=== PATIENT | male | born 1955 | race Hispanic/Latino ===

== ENCOUNTER 2017-05-22 23:36 | Inpatient (IN) | payer OTHER ==
[2017-05-22 23:46] VITALS: BMI 27.2
[2017-05-22] MEDS ORDERED: HYDROmorphone 1 mg/ml ISec IVP STA (23:47)
[2017-05-22] MEDS ORDERED: Sodium Chloride 0.9% 1,000 ML IV STA (23:47)
--- NOTE | 2017-05-22 23:58 | ED PDOC ---
Arrival/HPI - General Time Seen by Provider: 05/22/17 23:42 Historian: Patient, Spouse, EMS - History of Present Illness Narrative History of Present Illness (Text): 05/22/17 23:46 Bharat Grigsby is a 62 year old male, with a history of hypertension, appendectomy, and cholecystectomy, presents to the emergency department complaining of 1 week duration of lower abdominal pain associated with diarrhea. Patient's states that he was evaluated by PMD, , for these symptoms and was started on Imodium. States he has been taking medication for minimal relief. States that pain worsened tonight which prompted them to present to the emergency department for evaluation. Spouse states that patient has decreased appetite and associated 12 pound weight loss. Denies any fever, chills, headache, dizziness, chest pain, nausea, or urinary symptoms, or any other complaints at this time PMD: Time/Duration: Other (1 week ) Symptom Onset: Gradual Severity Level: Mild Activities at Onset: Light Context: Home Past Medical History - Provider Review Nursing Documentation Reviewed: Yes Family/Social History - Physician Review Nursing Documentation Reviewed: Yes Family/Social History: No Known Family HX Allergies/Home Meds Allergies/Adverse Reactions: Allergies No Known Allergies Allergy (Unverified 05/22/17 23:47) Home Medications: Home Meds Medication Instructions Recorded Confirmed Metoprolol Succinate [Metoprolol 50 mg PO DAILY 05/23/17 05/23/17 Succinate] Sucralfate [Carafate] 1 gm PO BID 05/23/17 05/23/17 Triamterene/Hydrochlorothiazid 25 - 37.5 mg PO DAILY 05/23/17 05/23/17 [Triamterene-Hctz 37.5-25 mg Tb] Review of Systems - Physician Review All systems were reviewed & negative as marked: Yes - Review of Systems Constitutional: Normal. absent: Fatigue, Fevers Respiratory: Normal. absent: SOB, Cough, Sputum Cardiovascular: Normal. absent: Chest Pain, Palpitations Gastrointestinal: Abdominal Pain, Diarrhea. absent: Nausea, Vomiting Neurological: Normal. absent: Headache, Dizziness Physical Exam Vital Signs Reviewed: Yes Vital Signs Temp Pulse Resp BP Pulse Ox 05/23/17 04:53 75 18 136/85 95 05/23/17 04:00 68 16 145/82 96 05/23/17 02:22 98.9 F 05/23/17 00:45 98.3 F 76 18 150/80 99 05/22/17 23:52 64 16 150/107 H 99 Temperature: Afebrile Blood Pressure: Hypertensive Pulse: Regular Respiratory Rate: Normal Appearance: Positive for: Well-Appearing, Non-Toxic, Comfortable Pain Distress: None Mental Status: Positive for: Alert and Oriented X 3 - Systems Exam Head: Present: Atraumatic, Normocephalic Extroacular Muscles: Present: EOMI Conjunctiva: Present: Normal Mouth: Present: Moist Mucous Membranes Respiratory/Chest: Present: Clear to Auscultation, Good Air Exchange. No: Respiratory Distress, Accessory Muscle Use Cardiovascular: Present: Regular Rate and Rhythm, Normal S1, S2. No: Murmurs Abdomen: Present: Tenderness (Minimal left lower quadrant tenderness ), Normal Bowel Sounds. No: Distention, Peritoneal Signs, Rebound, Guarding Upper Extremity: Present: Normal Inspection. No: Cyanosis, Edema Lower Extremity: Present: Normal Inspection. No: Edema Neurological: Present: GCS=15, CN II-XII Intact, Speech Normal, Motor Func Grossly Intact, Normal Sensory Function Skin: Present: Warm, Dry, Normal Color. No: Rashes Psychiatric: Present: Alert, Oriented x 3, Normal Insight, Normal Concentration Medical Decision Making ED Course and Treatment: 05/22/17 23:59 Impression: A 62 year old male who presents to the emergency department complaining of abdominal pain associated with diarrhea for 1 week. Plan: -- CT abdomen pelvis -- Labs -- Dilaudid -- IV fluids -- Zofran -- Urinalysis - Reassess and disposition Progress Notes: 05/23/17 02:21 EXAM: CT Abdomen and Pelvis With Intravenous Contrast Dictated and Authenticated by: Jeanne Burrell MD FINDINGS: Abdomen pelvis: Hepatic steatosis. Post cholecystectomy. Unremarkable pancreas, spleen, and adrenal glands. Bilateral renal cysts. No hydronephrosis. Normal caliber aorta. Moderate fecal retention. No bowel obstruction. Nonvisualization of the appendix. No free fluid or free air. IMPRESSION: Constipation. 05/23/17 05:41 EKG interpreted by me: NSR @ [address]/T changes. 05/23/17 05:[address] Longoria who is aware and agrees with the plan to observe patient at telemetry for abdominal pain and hypokalemia. Accepts patient under hospitalist service. - Lab Interpretations Lab Results: 05/23/17 00:03 05/23/17 00:03 Lab Results 05/23/17 02:01: pO2 33, VBG pH 7.51 H, VBG pCO2 31.0 L, VBG HCO3 24.7, VBG Total CO2 25.7, VBG O2 Sat (Calc) 76.1 H, VBG Base Excess 2.6 H, VBG Potassium 3.0 L, Glucose 127 H, Lactate 3.6 H, FiO2 21.0, Sodium 139.0, Chloride 100.0, Venous Blood Potassium 3.0 L 05/23/17 01:50: Urine Color Yellow, Urine Appearance Clear, Urine pH 6.5, Ur Specific [place] 1.010, Urine Protein Negative, Urine Glucose (UA) Negative, Urine Ketones 40 H, Urine Blood Negative, Urine Nitrate Negative, Urine Bilirubin Negative, Urine Urobilinogen 0.2, Ur Leukocyte Esterase Negative 05/23/17 00:03: WBC 6.3, RBC 5.64, Hgb 17.5, Hct 47.6, MCV 84.4, MCH 31.0, MCHC 36.8, RDW 12.7, Plt Count 225, MPV 10.1 05/23/17 00:03: Sodium 139, Potassium 2.6 L*, Chloride 96, Carbon Dioxide 21, Anion Gap 25 H, BUN 22 H, Creatinine 1.2, Est GFR ( Amer) > 60, Est GFR ( Non-Af Amer) > 60, Random Glucose 132 H, Calcium 10.5, Total Bilirubin 1.6 H, AST 38, ALT 49, Alkaline Phosphatase 57, Total Protein 8.7 H, Albumin 5.4 H, Globulin 3.3, Albumin/Globulin Ratio 1.6, Lipase 558 H I have reviewed the lab results: Yes - RAD Interpretation Radiology Orders: 05/22/17 23:48 ABD & PELVIS IV CONTRAST ONLY [CT] Stat Partner: Radiologist - Medication Orders Current Medication Orders: Sodium Chloride (Sodium Chloride 0.9%) 1,000 mls @ 100 mls/hr IV .Q10H ROGELIO Last Admin: 05/23/17 03:06 Dose: 100 mls/hr Discontinued Medications Hydromorphone HCl (Dilaudid) 1 mg IVP STAT STA Stop: 05/22/17 23:48 Last Admin: 05/23/17 00:10 Dose: 1 mg Sodium Chloride (Sodium Chloride 0.9%) 1,000 mls @ 999 mls/hr IV .Q1H1M STA Stop: 05/23/17 00:47 Last Admin: 05/23/17 00:12 Dose: 999 mls/hr Potassium Chloride (Potassium Chloride 20 Meq/100 Ml) 20 meq in 100 mls @ 50 mls/hr IV ONCE ONE Stop: 05/23/17 02:35 Last Admin: 05/23/17 01:01 Dose: 50 mls/hr Sodium Chloride (Sodium Chloride 0.9%) 1,000 mls @ 999 mls/hr IV .Q1H1M STA Stop: 05/23/17 01:36 Last Admin: 05/23/17 01:02 Dose: 999 mls/hr Potassium Chloride (Potassium Chloride 20 Meq/100 Ml) 20 meq in 100 mls @ 50 mls/hr IV ONCE ONE Stop: 05/23/17 02:36 Last Admin: 05/23/17 03:27 Dose: 50 mls/hr Iohexol (Omnipaque 350 100 Ml) Confirm Administered Dose 350 mg .ROUTE .STK-MED ONE Stop: 05/23/17 01:15 Ondansetron HCl (Zofran Inj) 4 mg IVP ONCE ONE Stop: 05/22/17 23:48 Last Admin: 05/23/17 00:12 Dose: 4 mg - Keerthie Statement The provider has reviewed the documentation as recorded by the Tess Banegas Provider Attestation: All medical record entries made by the Tess were at my direction and personally dictated by me. I have reviewed the chart and agree that the record accurately reflects my personal performance of the history, physical exam, medical decision making, and the department course for this patient. I have also personally directed, reviewed, and agree with the discharge instructions and disposition. Disposition/Present on Arrival - Present on Arrival Any Indicators Present on Arrival: No History of DVT/PE: No History of Uncontrolled Diabetes: No Urinary Catheter: No History of Decub. Ulcer: No History Surgical Site Infection Following: None - Disposition Have Diagnosis and Disposition been Completed?: Yes Diagnosis: Intractable abdominal pain, Hypokalemia Disposition: HOSPITALIZED Disposition Time: 02:40 Patient Plan: Admission Patient Problems: Current Active Problems Problem Status Onset Hypokalemia Acute Intractable abdominal pain Acute Condition: STABLE
[2017-05-23 00:17] LABS: HEMOGLOBIN 17.5 g/dL (14.0-18.0); MEAN CELL VOLUME 84.4 fl (80.0-105.0); MEAN CORPUSCULAR HGB CONC 36.8 g/dl (31.0-37.0); MEAN PLATELET VOLUME 10.1 fl (7.0-11.0); RBC 5.64 10^6/uL (3.5-6.1); RED CELL DISTRIBUTION WIDTH 12.7 % (11.5-14.5); WHITE BLOOD COUNT 6.3 10^3/ul (4.5-11.0)
[2017-05-23 00:26] LABS: ALBUMIN 5.4 g/dL (3.0-4.8); ALT/SGPT 49 U/L (7-56); AST/SGOT 38 U/L (15-59); BLOOD UREA NITROGEN 22 mg/dL (7-21); CALCIUM 10.5 mg/dL (8.4-10.5); GFR AFRICAN-AMERICAN > 60; GFR NON-AFRICAN AMERICAN > 60; LIPASE 558 U/L (23-300)
[2017-05-23 00:30] LABS: ALB/GLOB RATIO 1.6 (1.1-1.8)
[2017-05-23] MEDS ORDERED: Sodium Chloride 0.9% 1,000 ML IV STA (00:36)
[2017-05-23] MEDS ORDERED: Iohexol 350 MG/100 ML VIAL ONE (01:14)
[2017-05-23 02:10] LABS: PH,URINE 6.5 (4.7-8.0); URINE BILIRUBIN NEGATIVE (NEGATIVE); URINE BLOOD NEGATIVE (NEGATIVE); URINE GLUCOSE (UA) NEGATIVE (NEGATIVE); URINE LEUKOCYTE ESTERASE NEGATIVE Leu/uL (NEGATIVE); URINE NITRATE NEGATIVE (NEGATIVE); URINE PROTEIN NEGATIVE mg/dL (<30 mg/dL); URINE UROBILINOGEN 0.2 E.U./dL (<1 E.U./dL)
[2017-05-23 02:12] LABS: URINE APPEARANCE CLEAR (CLEAR); URINE COLOR YELLOW (YELLOW)
[2017-05-23 02:17] LABS: VENOUS BLOOD GAS BASE EXCESS 2.6 mmol/L (0.0-2.0); VENOUS BLOOD GAS PO2 33 mm/Hg (30-55); VENOUS BLOOD PH 7.51 (7.32-7.43)
[2017-05-23] MEDS: Sodium Chloride 0.9% 1,000 ML IV SCH ×3 (03:06→23:30)
--- NOTE | 2017-05-23 06:21 | CP.PCM.HP ---
<Gary Posada - Last Filed: 05/23/17 06:23> History of Present Illness - History of Present Illness History of Present Illness: Patient is a 62 year old male with PMH sig for HTN and colon polyps who presents with 2-3 week history of abdominal pain. The patient reports for the past week he has experienced diarrhea associated with his abdominal pain. Patient describes abdominal pain as cramping and sharp located at the left lower quadrant. He rates the pain as 10/10 on admission. At time of interview patient rates pain as 4/10. The patient went to his PMD Dr. Hou with presenting complaints and given imodium. The patient reports since he started taking the imodium has been having constipation. patient reports last bowel movement was 6 hours prior to arrival and noted to be small, black, stool. He denies any pain with defecation, blood or mucus in stool, fever, chills, vomiting. He does indicate feelings of nausea associated with abdominal discomfort. PMH: HTN, colon polyps PSH: Appendectomy, Cholecystectomy, Tonsillectomy, Colonoscopy 4 years prior FMH: Father: Lung Ca, Mother: Kidney stones, Brother and Sister both with cholecystectomy SocHx: Denies tobacco, ETOH, ID/IVDA Allergies: NKDA Meds: See DEC PMD: Dr. Hou Present on Admission - Present on Admission Any Indicators Present on Admission: No History of DVT/PE: No History of Uncontrolled Diabetes: No Urinary Catheter: No Decubitus Ulcer Present: No Review of Systems - Constitutional Constitutional: As Per HPI - Cardiovascular Cardiovascular: absent: Chest Pain, Dyspnea, Leg Edema, Palpitations - Respiratory Respiratory: absent: Cough, Dyspnea, Hemoptysis - Gastrointestinal Gastrointestinal: Abdominal Pain (LLQ), Change in Bowel Habits, Constipation, Melena, Nausea. absent: Dysphagia, Hematochezia, Vomiting - Genitourinary Genitourinary: absent: Dysuria, Flank Pain, Hematuria, Urinary Incontinence - Musculoskeletal Musculoskeletal: absent: Muscle Cramps, Muscle Weakness, Numbness - Integumentary Integumentary: As Per HPI - Neurological Neurological: absent: Abnormal Gait, Abnormal Movements, Headaches, Syncope, Weakness - Psychiatric Psychiatric: absent: Anxiety, Depression - Hematologic/Lymphatic Hematologic: absent: Easy Bleeding, Easy Bruising Past Patient History - Past Social History Smoking Status: Never Smoked Alcohol: None Drugs: Denies - CARDIAC Hx Hypertension: Yes - PULMONARY Hx Respiratory Disorders: No (denies) - NEUROLOGICAL Hx Neurological Disorder: No (denies) - HEENT Hx HEENT Problems: No (denies) - RENAL Hx Chronic Kidney Disease: No (denies) - ENDOCRINE/METABOLIC Hx Endocrine Disorders: No (denies) - HEMATOLOGICAL/ONCOLOGICAL Hx Blood Disorders: No (denies) - INTEGUMENTARY Hx Dermatological Problems: No (denies) - MUSCULOSKELETAL/RHEUMATOLOGICAL Hx Musculoskeletal Disorders: No (denies) - GASTROINTESTINAL Hx Gastrointestinal Disorders: No (denies) - GENITOURINARY/GYNECOLOGICAL Hx Genitourinary Disorders: No - PSYCHIATRIC Hx Psychophysiologic Disorder: No Hx Substance Use: No - SURGICAL HISTORY Hx Surgeries: Yes Hx Appendectomy: Yes Hx Cholecystectomy: Yes Meds Home Medications: Home Medication List Medication Instructions Recorded Confirmed Type Potassium Chloride 20 meq PO DAILY #3 [email or web address] 05/23/17 Rx Allergies/Adverse Reactions: Allergies Allergy/AdvReac Type Severity Reaction Status Date / Time No Known Allergies Allergy Unverified 05/22/17 23:47 Physical Exam - Constitutional Appears: Well - Head Exam Head Exam: ATRAUMATIC, NORMAL INSPECTION, NORMOCEPHALIC - Eye Exam Eye Exam: EOMI, PERRL - ENT Exam ENT Exam: Mucous Membranes Moist, Normal Exam - Respiratory Exam Respiratory Exam: Clear to Auscultation Bilateral, NORMAL BREATHING PATTERN - Cardiovascular Exam Cardiovascular Exam: REGULAR RHYTHM, +S1, +S2 - GI/Abdominal Exam GI & Abdominal Exam: Hypoactive Bowel Sounds, Soft, Tenderness (left lower quadrant to palpation). absent: Firm - Extremities Exam Extremities exam: Positive for: full ROM, normal inspection, pedal pulses present - Back Exam Back exam: NORMAL INSPECTION. absent: CVA tenderness (L), CVA tenderness (R) - Neurological Exam Neurological exam: Alert, CN II-XII Intact, Normal Gait, Oriented x3, Reflexes Normal - Psychiatric Exam Psychiatric exam: Normal Affect, Normal Mood - Skin Skin Exam: Dry, Intact, Normal Color, Warm Results - Vital Signs Recent Vital Signs: Last Vital Signs Temp 98.9 F 05/23/17 02:22 Pulse 91 H 05/23/17 06:11 Resp 18 05/23/17 04:53 BP 136/85 05/23/17 04:53 Pulse Ox 95 05/23/17 04:53 - Labs Result Diagrams: 05/23/17 00:03 05/23/17 00:03 Assessment & Plan - Assessment and Plan (Free Text) Assessment: Patient is a 62 year old male with PMH of HTN and hx of colon polyps who presents to [facility] [place] complaining of abdominal pain for the past 2-3 weeks. Patient reports diarrhea for past week with treatment of imodium causing subsequent constipation. Patient has had CT of abdomen and pelvis showing constipation. Plan: 1. Left lower abdominal pain - Likely 2/2 constipation vs. IBS vs. diverticulitis - CT abdomen showing moderate fecal retention, no bowel obstruction, no free fluid or free air - Lipase of 558, Lactate of 3.6 on VBG, No elevation of WBC - most recent colonoscopy was four years ago showing polyps - IV Dilaudid 0.5mg Q4prn for severe pain - zofran for nausea - Liquid diet, IVF NS - GI consult - repeat lipase/amylase and lactic acid 2. Hypokalemia - K of 2.7 on admit - Patient asymptomatic, EKG showing no ST segment elevation/depression - Replace with Kdur, given 40 meq in ED - Repeat CBC - Hold home diuretic - monitor 3. Constipation - History of constipation past week secondary to imodium - CT abdomen pelvis showing fecal retention - Miralax, Colace 4. Hx of HTN - VSS - Restart Metoprolol 50mg - Hold diuretic due to hypokalemia on presentation 5. GI/DVT ppx - protonix - SCDs - Date & Time Date: 05/23/17 Time: 06:33 <Bess Espino - Last Filed: 05/23/17 20:32> Results - Vital Signs Recent Vital Signs: Last Vital Signs Temp 99.8 F H 05/23/17 17:20 Pulse 72 05/23/17 17:20 Resp 21 05/23/17 17:20 BP 138/86 05/23/17 17:20 Pulse Ox 95 05/23/17 04:53 - Labs Result Diagrams: 05/23/17 00:03 05/23/17 16:46 Labs: Laboratory Results - last 24 hr 05/23/17 05/23/17 05/23/17 06:45 07:00 08:00 pO2 83 H VBG pH 7.42 VBG pCO2 37.0 L VBG HCO3 24.0 VBG Total CO2 25.1 VBG O2 Sat (Calc) 98.8 H VBG Base Excess -0.2 L VBG Potassium 2.9 L Sodium 139.0 139 Chloride 103.0 103 Glucose 162 H Lactate 2.7 H FiO2 21.0 Potassium 2.9 L* Carbon Dioxide 22 Anion Gap 17 BUN 19 Creatinine 0.9 Est GFR ( Amer) > 60 Est GFR (Non-Af Amer) > 60 Random Glucose 153 H Lactic Acid 2.8 H Calcium 8.8 Magnesium Total Bilirubin 1.2 AST 33 ALT 42 Alkaline Phosphatase 41 Total Protein 6.7 Albumin 4.2 Globulin 2.5 Albumin/Globulin Ratio 1.7 Venous Blood Potassium 2.9 L 05/23/17 05/23/17 05/23/17 11:30 12:41 16:46 pO2 35 27 L VBG pH 7.44 H 7.42 VBG pCO2 38.0 L 41.0 VBG HCO3 25.8 26.6 VBG Total CO2 27.0 27.9 VBG O2 Sat (Calc) 76.7 H 62.8 VBG Base Excess 1.7 1.9 VBG Potassium 3.5 L 3.8 Sodium 140.0 141.0 Chloride 105.0 107.0 Glucose 131 H 104 Lactate 2.0 1.8 FiO2 21.0 21.0 Potassium Carbon Dioxide Anion Gap BUN Creatinine Est GFR ( Amer) Est GFR (Non-Af Amer) Random Glucose Lactic Acid Calcium Magnesium 1.8 Total Bilirubin AST ALT Alkaline Phosphatase Total Protein Albumin Globulin Albumin/Globulin Ratio Venous Blood Potassium 3.5 L 3.8 05/23/17 16:46 pO2 VBG pH VBG pCO2 VBG HCO3 VBG Total CO2 VBG O2 Sat (Calc) VBG Base Excess VBG Potassium Sodium 140 Chloride 106 Glucose Lactate FiO2 Potassium 3.6 Carbon Dioxide 24 Anion Gap 14 BUN 15 Creatinine 1.0 Est GFR ( Amer) > 60 Est GFR (Non-Af Amer) > 60 Random Glucose 98 Lactic Acid Calcium 8.5 Magnesium Total Bilirubin AST ALT Alkaline Phosphatase Total Protein Albumin Globulin Albumin/Globulin Ratio Venous Blood Potassium Attending/Attestation - Attestation I have personally seen and examined this patient.: Yes I have fully participated in the care of the patient.: Yes I have reviewed all pertinent clinical information: Yes Notes (Text): 05/23/17 20:30 Agree with history,physical examination, assessmend and plan.
[2017-05-23] MEDS ORDERED: Potassium Chloride 40 mEq/30 ml LIQ UD PO ONE (06:24)
[2017-05-23] MEDS: HYDROmorphone 0.5 mg/0.5 ml ISec IVP PRN (06:25)
[2017-05-23 07:05] LABS: VENOUS BLOOD GAS BASE EXCESS -0.2 mmol/L (0.0-2.0); VENOUS BLOOD GAS PO2 83 mm/Hg (30-55); VENOUS BLOOD PH 7.42 (7.32-7.43)
[2017-05-23 08:16] LABS: ALB/GLOB RATIO 1.7 (1.1-1.8); ALBUMIN 4.2 g/dL (3.0-4.8); ALT/SGPT 42 U/L (7-56); AST/SGOT 33 U/L (15-59); BLOOD UREA NITROGEN 19 mg/dL (7-21); CALCIUM 8.8 mg/dL (8.4-10.5); GFR AFRICAN-AMERICAN > 60; GFR NON-AFRICAN AMERICAN > 60
[2017-05-23] MEDS: POLYETHYLENE GLYCOL 3350 17 GM/Dose PACKET PO SCH ×2 (09:45→18:14)
[2017-05-23] MEDS: Metoprolol Succinate 50 mg XL Tab PO SCH (09:46)
[2017-05-23] MEDS ORDERED: HYDROCHLOROTHIAZIDE PO SCH (10:00)
[2017-05-23] MEDS ORDERED: TRIAMTERENE PO SCH (10:00)
--- NOTE | 2017-05-23 10:07 | CP.PCM.CON ---
<Evonne Fowler V - Last Filed: 05/23/17 22:46> Meds Home Medications: Home Medication List Medication Instructions Recorded Confirmed Type Potassium Chloride 20 meq PO DAILY #3 [email or web address] 05/23/17 Rx Allergies/Adverse Reactions: Allergies Allergy/AdvReac Type Severity Reaction Status Date / Time No Known Allergies Allergy Unverified 05/22/17 23:47 - Medications Medications: Current Medications Acetaminophen (Tylenol 325mg Tab) 650 mg PO Q6H PRN PRN Reason: Fever >100.4 F Docusate Sodium (Colace) 100 mg PO BID [facility] [place] Last Admin: 05/23/17 18:14 Dose: 100 mg Hydromorphone HCl (Dilaudid) 0.5 mg IVP Q6H PRN PRN Reason: Pain, severe (8-10) Last Admin: 05/23/17 06:25 Dose: 0.5 mg Sodium Chloride (Sodium Chloride 0.9%) 1,000 mls @ 100 mls/hr IV .Q10H [facility] [place] Last Admin: 05/23/17 12:16 Dose: 100 mls/hr Metoprolol Succinate (Toprol Xl) 50 mg PO DAILY [facility] [place] Last Admin: 05/23/17 09:46 Dose: 50 mg Pantoprazole Sodium (Protonix Inj) 40 mg IVP DAILY [facility] [place] Last Admin: 05/23/17 09:45 Dose: 40 mg Polyethylene Glycol (Miralax) 17 gm PO BID [facility] [place] Last Admin: 05/23/17 18:14 Dose: 17 gm Sucralfate (Carafate Tab) 1 gm PO BID [facility] [place] Last Admin: 05/23/17 18:14 Dose: 1 gm Results - Vital Signs Recent Vital Signs: Last Vital Signs Temp 99.8 F H 05/23/17 17:20 Pulse 72 05/23/17 17:20 Resp 21 05/23/17 17:20 BP 138/86 05/23/17 17:20 Pulse Ox 95 05/23/17 04:53 - Labs Result Diagrams: 05/23/17 00:03 05/23/17 16:46 Labs: Laboratory Results - last 24 hr 05/23/17 05/23/17 05/23/17 06:45 07:00 08:00 pO2 83 H VBG pH 7.42 VBG pCO2 37.0 L VBG HCO3 24.0 VBG Total CO2 25.1 VBG O2 Sat (Calc) 98.8 H VBG Base Excess -0.2 L VBG Potassium 2.9 L Sodium 139.0 139 Chloride 103.0 103 Glucose 162 H Lactate 2.7 H FiO2 21.0 Potassium 2.9 L* Carbon Dioxide 22 Anion Gap 17 BUN 19 Creatinine 0.9 Est GFR ( Amer) > 60 Est GFR (Non-Af Amer) > 60 Random Glucose 153 H Lactic Acid 2.8 H Calcium 8.8 Magnesium Total Bilirubin 1.2 AST 33 ALT 42 Alkaline Phosphatase 41 Total Protein 6.7 Albumin 4.2 Globulin 2.5 Albumin/Globulin Ratio 1.7 Venous Blood Potassium 2.9 L 05/23/17 05/23/17 05/23/17 11:30 12:41 16:46 pO2 35 27 L VBG pH 7.44 H 7.42 VBG pCO2 38.0 L 41.0 VBG HCO3 25.8 26.6 VBG Total CO2 27.0 27.9 VBG O2 Sat (Calc) 76.7 H 62.8 VBG Base Excess 1.7 1.9 VBG Potassium 3.5 L 3.8 Sodium 140.0 141.0 Chloride 105.0 107.0 Glucose 131 H 104 Lactate 2.0 1.8 FiO2 21.0 21.0 Potassium Carbon Dioxide Anion Gap BUN Creatinine Est GFR ( Amer) Est GFR (Non-Af Amer) Random Glucose Lactic Acid Calcium Magnesium 1.8 Total Bilirubin AST ALT Alkaline Phosphatase Total Protein Albumin Globulin Albumin/Globulin Ratio Venous Blood Potassium 3.5 L 3.8 05/23/17 16:46 pO2 VBG pH VBG pCO2 VBG HCO3 VBG Total CO2 VBG O2 Sat (Calc) VBG Base Excess VBG Potassium Sodium 140 Chloride 106 Glucose Lactate FiO2 Potassium 3.6 Carbon Dioxide 24 Anion Gap 14 BUN 15 Creatinine 1.0 Est GFR ( Amer) > 60 Est GFR (Non-Af Amer) > 60 Random Glucose 98 Lactic Acid Calcium 8.5 Magnesium Total Bilirubin AST ALT Alkaline Phosphatase Total Protein Albumin Globulin Albumin/Globulin Ratio Venous Blood Potassium Attending/Attestation - Attestation I have personally seen and examined this patient.: Yes I have fully participated in the care of the patient.: Yes I have reviewed all pertinent clinical information: Yes Notes (Text): this patient was seen and evaluated here earlier. Admitted with the complaints of intermittent episodes of loose bowel movements and the left lower quadrant groin pain. this history of significant weight loss. On examination abdomen is soft he could not appreciate obvious tenderness this time CT of the abdomen and pelvis was reviewed and it was limited study with no oral or IV contrast Hypokalemia being supplemented Would recommend CT of the abdomen and pelvis with po and IV contrast to further evaluate. Once his diet hypokalemia could be related to diuretic therapy and diarrhea Discussed with the Dr. Munoz <Mariaa Cardenas - Last Filed: 05/24/17 07:40> History of Present Illness - History of Present Illness History of Present Illness: Seen and examined at the bedside this morning, chart was reviewed. Request for consult is for abdominal pain. HPI: This is a 62-year-old male with a past medical history of colon polyps, and hypertension came to the emergency room with complaints of increasing abdominal pain, he describes the pain as a cramping and occasional sharp pain located to the left lower quadrant abdomen. His abdominal pain started about 2- 3 weeks ago and then started with experiencing diarrhea. He does not recall any contributing factors for the diarrhea. He did see Dr. Hou, his PCP and was given Immodium. He did report that his diarrhea improved but then he became constipated. Prior to this he did report taking Pepto-Bismol about 10 days ago. His last endoscopy and colonoscopy was in 2013 he was found to have chronic gastritis, biopsies were negative for H. pylori and colonoscopy was found to have colon polyps which were reported to be hyperplastic. He denies any fever, chills, shortness of breath or chest pains. He did report about a 17 pound weight loss but has slowly been gaining this back. On admission he had a CT scan of abdomen and pelvis with only IV contrast and preliminary reports show moderate fecal retention. He did have a bowel movement in the emergency room denies melena or bright red blood per rectum but reported to be dark. PMH: Colon polyps, hypertension, gastritis PS H: Cholecystectomy, appendectomy, tonsillectomy, last endoscopy and colonoscopy was in 2013 as described above Family history: Mitesh: Lung cancer, mother: Kidney stones Social history: Denies tobacco, EtOH or substance abuse Allergies: No known drug allergies Medications: Reviewed as per primary MAR ROS: Systems reviewed with positive findings see HPI Past Patient History - Past Social History Smoking Status: Never Smoked Alcohol: None Drugs: Denies - CARDIAC Hx Hypertension: Yes - PULMONARY Hx Respiratory Disorders: No (denies) - NEUROLOGICAL Hx Neurological Disorder: No (denies) - HEENT Hx HEENT Problems: No (denies) - RENAL Hx Chronic Kidney Disease: No (denies) - ENDOCRINE/METABOLIC Hx Endocrine Disorders: No (denies) - HEMATOLOGICAL/ONCOLOGICAL Hx Blood Disorders: No (denies) - INTEGUMENTARY Hx Dermatological Problems: No (denies) - MUSCULOSKELETAL/RHEUMATOLOGICAL Hx Musculoskeletal Disorders: No (denies) - GASTROINTESTINAL Hx Gastrointestinal Disorders: No (denies) - GENITOURINARY/GYNECOLOGICAL Hx Genitourinary Disorders: No - PSYCHIATRIC Hx Psychophysiologic Disorder: No Hx Substance Use: No - SURGICAL HISTORY Hx Surgeries: Yes Hx Appendectomy: Yes Hx Cholecystectomy: Yes Meds - Medications Medications: Current Medications Acetaminophen (Tylenol 325mg Tab) 650 mg PO Q6H PRN PRN Reason: Fever >100.4 F Docusate Sodium (Colace) 100 mg PO BID [facility] [place] Last Admin: 05/23/17 09:46 Dose: 100 mg Hydromorphone HCl (Dilaudid) 0.5 mg IVP Q6H PRN PRN Reason: Pain, severe (8-10) Last Admin: 05/23/17 06:25 Dose: 0.5 mg Sodium Chloride (Sodium Chloride 0.9%) 1,000 mls @ 100 mls/hr IV .Q10H [facility] [place] Last Admin: 05/23/17 03:06 Dose: 100 mls/hr Metoprolol Succinate (Toprol Xl) 50 mg PO DAILY [facility] [place] Last Admin: 05/23/17 09:46 Dose: 50 mg Pantoprazole Sodium (Protonix Inj) 40 mg IVP DAILY [facility] [place] Last Admin: 05/23/17 09:45 Dose: 40 mg Polyethylene Glycol (Miralax) 17 gm PO BID [facility] [place] Last Admin: 05/23/17 09:45 Dose: 17 gm Sucralfate (Carafate Tab) 1 gm PO BID [facility] [place] Last Admin: 05/23/17 09:46 Dose: 1 gm Physical Exam - Constitutional Appears: No Acute Distress - Head Exam Head Exam: NORMOCEPHALIC - Eye Exam Eye Exam: Normal appearance. absent: Scleral icterus - ENT Exam ENT Exam: Mucous Membranes Moist - Neck Exam Neck exam: Positive for: Normal Inspection - Respiratory Exam Respiratory Exam: Clear to Auscultation Bilateral, NORMAL BREATHING PATTERN. absent: Respiratory Distress - Cardiovascular Exam Cardiovascular Exam: +S1, +S2 - GI/Abdominal Exam GI & Abdominal Exam: Normal Bowel Sounds, Soft, Tenderness (LLQ). absent: Distended, Guarding, Rebound - Extremities Exam Extremities exam: Positive for: pedal pulses present. Negative for: calf tenderness, pedal edema - Neurological Exam Neurological exam: CN II-XII Intact, Oriented x3 - Skin Skin Exam: Dry, Warm Results - Vital Signs Recent Vital Signs: Last Vital Signs Temp 98 F 05/23/17 06:11 Pulse 92 H 05/23/17 09:46 Resp 18 05/23/17 06:11 BP 143/79 05/23/17 09:46 Pulse Ox 95 05/23/17 04:53 - Labs Result Diagrams: 05/23/17 00:03 05/23/17 16:46 Labs: Laboratory Results - last 24 hr 05/23/17 05/23/17 05/23/17 06:45 07:00 08:00 pO2 83 H VBG pH 7.42 VBG pCO2 37.0 L VBG HCO3 24.0 VBG Total CO2 25.1 VBG O2 Sat (Calc) 98.8 H VBG Base Excess -0.2 L VBG Potassium 2.9 L Sodium 139.0 139 Chloride 103.0 103 Glucose 162 H Lactate 2.7 H FiO2 21.0 Potassium 2.9 L* Carbon Dioxide 22 Anion Gap 17 BUN 19 Creatinine 0.9 Est GFR ( Amer) > 60 Est GFR (Non-Af Amer) > 60 Random Glucose 153 H Lactic Acid 2.8 H Calcium 8.8 Total Bilirubin 1.2 AST 33 ALT 42 Alkaline Phosphatase 41 Total Protein 6.7 Albumin 4.2 Globulin 2.5 Albumin/Globulin Ratio 1.7 Venous Blood Potassium 2.9 L Assessment & Plan - Assessment and Plan (Free Text) Assessment: Assessment: Left lower quadrant abdominal pain, maybe secondary to the constipation History of colon polyps Hypertension Hypokalemia Weight Loss Plan: Continue clear liquid diet continue MiraLAX BID, hold for stool >2/day check mg level replace potassium as needed monitor electrolytes Thank you for this colon and for allowing us to participate in your patient care , will make further recommendation based upon clinical course. Seen and discussed w/ Dr. Ba.
--- NOTE | 2017-05-23 11:47 | CARD ---
APPROVED REPORT EKG Measurement Heart [id number] <Conclusion> Normal sinus rhythm Nonspecific ST and T wave abnormality Prolonged QT Abnormal ECG
[2017-05-23] MEDS: Potassium Chloride 40 mEq/30 ml LIQ UD PO SCH ×2 (11:52→16:21)
[2017-05-23 12:48] LABS: VENOUS BLOOD GAS BASE EXCESS 1.7 mmol/L (0.0-2.0); VENOUS BLOOD GAS PO2 35 mm/Hg (30-55); VENOUS BLOOD PH 7.44 (7.32-7.43)
--- NOTE | 2017-05-23 13:09 | CT ---
PROCEDURE: CT Abdomen and Pelvis with contrast HISTORY: abdominal pain COMPARISON: None. TECHNIQUE: Contrast dose: 100 cc of Omni 350 Radiation dose: Total exam DLP = 887 mGy-cm. This CT exam was performed using one or more of the following dose reduction techniques: Automated exposure control, adjustment of the mA and/or kV according to patient size, and/or use of iterative reconstruction technique. FINDINGS: LOWER THORAX: Unremarkable. LIVER: Unremarkable. No gross lesion or ductal dilatation. Mild fatty infiltration of the liver GALLBLADDER AND BILE DUCTS: Gallbladder removed PANCREAS: Unremarkable. No gross lesion or ductal dilatation. SPLEEN: Unremarkable. ADRENALS: Unremarkable. No mass. KIDNEYS AND URETERS: Unremarkable. No hydronephrosis. No solid mass. VASCULATURE: Unremarkable. No aortic aneurysm. BOWEL: Unremarkable. No obstruction. No gross mural thickening. Mild constipation APPENDIX: Normal appendix. PERITONEUM: Unremarkable. No free fluid. No free air. LYMPH NODES: Unremarkable. No enlarged lymph nodes. BLADDER: Unremarkable. REPRODUCTIVE: Unremarkable. BONES: No acute fracture. OTHER FINDINGS: The report concurs with the preliminary [facility] report IMPRESSION: No acute findings
[2017-05-23 16:53] LABS: VENOUS BLOOD GAS BASE EXCESS 1.9 mmol/L (0.0-2.0); VENOUS BLOOD GAS PO2 27 mm/Hg (30-55); VENOUS BLOOD PH 7.42 (7.32-7.43)
[2017-05-23 17:00] LABS: BLOOD UREA NITROGEN 15 mg/dL (7-21); CALCIUM 8.5 mg/dL (8.4-10.5); GFR AFRICAN-AMERICAN > 60; GFR NON-AFRICAN AMERICAN > 60
[2017-05-24] MEDS ORDERED: Barium Sulfate Susp 2.1% w/v, 2.0% w/w 450 mL Bottle PO ONE (07:11)
[2017-05-24 08:14] LABS: BASO # 0.02 K/mm3 (0.0-2.0); BASO % 0.2 % (0.0-3.0); EOS # 0.1 (0.0-0.7); EOS % 0.7 % (1.5-5.0); GRAN % 82.2 % (50.0-68.0); HEMOGLOBIN 14.1 g/dL (14.0-18.0); LYMPH # 1.2 (1.2-3.4); LYMPH % 11.6 % (22.0-35.0); MEAN CELL VOLUME 88.9 fl (80.0-105.0); MEAN CORPUSCULAR HGB CONC 33.7 g/dl (31.0-37.0); MONO # 0.5 (0.1-0.6); MONO % 5.3 % (1.0-6.0); PLATELET COUNT 160 10^3/uL (120.0-450.0); RED CELL DISTRIBUTION WIDTH 13.2 % (11.5-14.5); WHITE BLOOD COUNT 10.2 10^3/ul (4.5-11.0)
[2017-05-24 08:29] LABS: ALB/GLOB RATIO 1.6 (1.1-1.8); ALBUMIN 3.8 g/dL (3.0-4.8); ALT/SGPT 38 U/L (7-56); AST/SGOT 19 U/L (15-59); BLOOD UREA NITROGEN 12 mg/dL (7-21); CALCIUM 8.5 mg/dL (8.4-10.5); GFR AFRICAN-AMERICAN > 60; GFR NON-AFRICAN AMERICAN > 60
[2017-05-24] MEDS: Sodium Chloride 0.9% 1,000 ML IV SCH ×2 (08:55→23:32)
[2017-05-24] MEDS: Metoprolol Succinate 50 mg XL Tab PO SCH (09:07)
[2017-05-24] MEDS: POLYETHYLENE GLYCOL 3350 17 GM/Dose PACKET PO SCH ×2 (09:12→16:59)
[2017-05-24] MEDS ORDERED: Iohexol 350 MG/100 ML VIAL ONE (09:19)
--- NOTE | 2017-05-24 09:26 | CP.PCM.PN ---
<Mariaa Cardenas - Last Filed: 05/24/17 13:44> Subjective - Date & Time of Evaluation Date of Evaluation: 05/24/17 Time of Evaluation: 08:10 - Subjective Subjective: S&E at bedside, chart reviewed, had brbpr this am with stool, pt still has LLQ discomfort at times, No N/V, sob or chest pain, his K + level is now improved, he is drinking oral contrast for repeat ct scan A&P. No other new complaints. Had mild temp last night. Objective - Vital Signs/Intake and Output Vital Signs (last 24 hours): Temp Pulse Resp BP Pulse Ox 98.3 F 65 18 137/82 99 05/24/17 06:00 05/24/17 09:07 05/24/17 06:00 05/24/17 09:07 05/24/17 06:00 Intake and Output: 05/24/17 05/24/17 06:59 18:59 Intake Total 0 1147 Output Total 0 Balance 0 1147 - Medications Medications: Current Medications Acetaminophen (Tylenol 325mg Tab) 650 mg PO Q6H PRN PRN Reason: Fever >100.4 F Last Admin: 05/23/17 23:28 Dose: 650 mg Docusate Sodium (Colace) 100 mg PO BID [facility] Last Admin: 05/24/17 09:08 Dose: 100 mg Hydromorphone HCl (Dilaudid) 0.5 mg IVP Q6H PRN PRN Reason: Pain, severe (8-10) Last Admin: 05/23/17 06:25 Dose: 0.5 mg Sodium Chloride (Sodium Chloride 0.9%) 1,000 mls @ 100 mls/hr IV .Q10H [facility] Last Admin: 05/24/17 08:55 Dose: 100 mls/hr Metoprolol Succinate (Toprol Xl) 50 mg PO DAILY [facility] Last Admin: 05/24/17 09:07 Dose: 50 mg Pantoprazole Sodium (Protonix Inj) 40 mg IVP DAILY [facility] Last Admin: 05/24/17 09:06 Dose: 40 mg Polyethylene Glycol (Miralax) 17 gm PO BID [facility] Last Admin: 05/24/17 09:12 Dose: Not Given Sucralfate (Carafate Tab) 1 gm PO BID [facility] Last Admin: 05/24/17 09:08 Dose: 1 gm - Labs Labs: 05/24/17 07:30 05/24/17 07:30 - Constitutional Appears: No Acute Distress - Head Exam Head Exam: NORMOCEPHALIC - Eye Exam Eye Exam: Normal appearance. absent: Scleral icterus - ENT Exam ENT Exam: Mucous Membranes Moist - Neck Exam Neck Exam: Normal Inspection - Respiratory Exam Respiratory Exam: Clear to Ausculation Bilateral, NORMAL BREATHING PATTERN. absent: Respiratory Distress - Cardiovascular Exam Cardiovascular Exam: +S1, +S2 - GI/Abdominal Exam GI & Abdominal Exam: Soft, Tenderness (llq), Normal Bowel Sounds. absent: Guarding, Organomegaly, Rebound - Rectal Exam Rectal Exam: Hemorrhoids (large external), Fecal Impaction. absent: Bloody Stool - Extremities Exam Extremities Exam: Normal Capillary Refill. absent: Calf Tenderness, Pedal Edema - Neurological Exam Neurological Exam: Alert, Awake, Oriented x3 Assessment and Plan - Assessment and Plan (Free Text) Assessment: Assessment: BRBPR Large external hemorroids Left lower quadrant abdominal pain, maybe secondary to the constipation History of colon polyps Hypertension Hypokalemia, resolved Weight Loss Plan: change diet to clear liquid diet continue MiraLAX BID, hold for stool >2/day replace potassium as needed monitor electrolytes FU pending ct scan A&P w/ iv and oral contrast considering colonoscopy for tomorrow in view of rectal bleed, etc but will await review of ct scan, r/o colitis monitor H/H discuss with patient / and nursing staff, will discuss w/ medical team. Seen and discussed w/ Dr. Fowler. 1:[address] scan report reviewed, mural thickening and messenteric inflammation decending colon consistent w/ colitis, start flagyl, see orders <Evonne Fowler V - Last Filed: 05/24/17 22:03> Objective - Vital Signs/Intake and Output Vital Signs (last 24 hours): Temp Pulse Resp BP Pulse Ox 98.6 F 65 20 127/83 99 05/24/17 12:00 05/24/17 12:00 05/24/17 12:00 05/24/17 12:00 05/24/17 06:00 Intake and Output: 05/24/17 05/25/17 18:59 06:59 Intake Total 1147 Balance 1147 - Medications Medications: Current Medications Acetaminophen (Tylenol 325mg Tab) 650 mg PO Q6H PRN PRN Reason: Fever >100.4 F Last Admin: 05/23/17 23:28 Dose: 650 mg Docusate Sodium (Colace) 100 mg PO BID [facility] Last Admin: 05/24/17 16:59 Dose: 100 mg Hydromorphone HCl (Dilaudid) 0.5 mg IVP Q6H PRN PRN Reason: Pain, severe (8-10) Last Admin: 05/24/17 10:56 Dose: 0.5 mg Sodium Chloride (Sodium Chloride 0.9%) 1,000 mls @ 100 mls/hr IV .Q10H [facility] Last Admin: 05/24/17 08:55 Dose: 100 mls/hr Metronidazole (Flagyl) 500 mg in 100 mls @ 100 mls/hr IVPB Q8 [facility] PRN Reason: Protocol Last Admin: 05/24/17 21:26 Dose: 100 mls/hr Ceftriaxone Sodium (Rocephin 1 Gram Ivpb) 1 gm in 100 mls @ 100 mls/hr IVPB DAILY [facility] PRN Reason: Protocol Metoprolol Succinate (Toprol Xl) 50 mg PO DAILY [facility] Last Admin: 05/24/17 09:07 Dose: 50 mg Pantoprazole Sodium (Protonix Inj) 40 mg IVP DAILY [facility] Last Admin: 05/24/17 09:06 Dose: 40 mg Polyethylene Glycol (Miralax) 17 gm PO BID [facility] Last Admin: 05/24/17 16:59 Dose: 17 gm Sucralfate (Carafate Tab) 1 gm PO BID [facility] Last Admin: 05/24/17 17:00 Dose: 1 gm - Labs Labs: 05/24/17 07:30 05/24/17 07:30 Attending/Attestation - Attestation I have personally seen and examined this patient.: Yes I have fully participated in the care of the patient.: Yes I have reviewed all pertinent clinical information, including history, physical exam and plan: Yes Notes (Text): The patient was seen and evaluated earlier. CT scan of the abdomen was reviewed On examination patient has tenderness on the left side of the abdomen Clinically the patient has colitis the differential diagnosis should include ischemic colitis as the colitis mainly involves the splenic flexure and descending colon long segment. The other differential diagnosis should include inflammatory bowel disease Crohn's and infectious colitis Would start the patient on IV antibiotics follow up stool cultures Would also consider colonoscopy/flexible sigmoidoscopy evaluation Thank you very much to participate in the care of the patient 05/24/17 21:59
[2017-05-24] MEDS: HYDROmorphone 0.5 mg/0.5 ml ISec IVP PRN (10:56)
--- NOTE | 2017-05-24 12:54 | CT ---
PROCEDURE: CT Abdomen and Pelvis with contrast HISTORY: abdominal pain COMPARISON: 05/23/2017 TECHNIQUE: Contrast dose: 100 cc of Omni 350 Radiation dose: Total exam DLP = 814 mGy-cm. This CT exam was performed using one or more of the following dose reduction techniques: Automated exposure control, adjustment of the mA and/or kV according to patient size, and/or use of iterative reconstruction technique. FINDINGS: LOWER THORAX: Unremarkable. LIVER: Unremarkable. No gross lesion or ductal dilatation. GALLBLADDER AND BILE DUCTS: Unremarkable. PANCREAS: Unremarkable. No gross lesion or ductal dilatation. SPLEEN: Unremarkable. ADRENALS: Unremarkable. No mass. KIDNEYS AND URETERS: Unremarkable. No hydronephrosis. No solid mass. VASCULATURE: Unremarkable. No aortic aneurysm. BOWEL: There is severe mural thickening in the descending colon with surrounding mesenteric inflammation. Findings are consistent with colitis. The findings were not present on yesterday's study even in retrospect. APPENDIX: Normal appendix. PERITONEUM: Unremarkable. No free fluid. No free air. LYMPH NODES: Unremarkable. No enlarged lymph nodes. BLADDER: Unremarkable. REPRODUCTIVE: Unremarkable. BONES: No acute fracture. OTHER FINDINGS: None. IMPRESSION: Mural thickening and mesenteric inflammation in the descending colon consistent with colitis
--- NOTE | 2017-05-24 13:12 | CP.PCM.PN ---
<NancyOlga - Last Filed: 05/24/17 14:24> Subjective - Date & Time of Evaluation Date of Evaluation: 05/24/17 Time of Evaluation: 13:10 - Subjective Subjective: Progress Notes for Dr. Munoz PT S&E at bedside. TASHA. Patient states he had bloody bowel movements, but his mosts recent one wasn't bloody. Patient is stable and comfortable. Patient admits to Q pain and constipation. CT abdomen/pelvis PO and IV contrast this AM. Patient denies F/C, N/V. Patient states he's comfortable and would like to go home CT Abdomen/Pelvis shows colitis. Patient placed patient on antibiotics for colitis Objective - Vital Signs/Intake and Output Vital Signs (last 24 hours): Temp Pulse Resp BP Pulse Ox 98.6 F 65 20 127/83 99 05/24/17 12:00 05/24/17 12:00 05/24/17 12:00 05/24/17 12:00 05/24/17 06:00 Intake and Output: 05/24/17 05/24/17 06:59 18:59 Intake Total 0 1147 Output Total 0 Balance 0 1147 - Medications Medications: Current Medications Acetaminophen (Tylenol 325mg Tab) 650 mg PO Q6H PRN PRN Reason: Fever >100.4 F Last Admin: 05/23/17 23:28 Dose: 650 mg Docusate Sodium (Colace) 100 mg PO BID [facility] Last Admin: 05/24/17 09:08 Dose: 100 mg Hydromorphone HCl (Dilaudid) 0.5 mg IVP Q6H PRN PRN Reason: Pain, severe (8-10) Last Admin: 05/24/17 10:56 Dose: 0.5 mg Sodium Chloride (Sodium Chloride 0.9%) 1,000 mls @ 100 mls/hr IV .Q10H [facility] Last Admin: 05/24/17 08:55 Dose: 100 mls/hr Metoprolol Succinate (Toprol Xl) 50 mg PO DAILY [facility] Last Admin: 05/24/17 09:07 Dose: 50 mg Pantoprazole Sodium (Protonix Inj) 40 mg IVP DAILY [facility] Last Admin: 05/24/17 09:06 Dose: 40 mg Polyethylene Glycol (Miralax) 17 gm PO BID [facility] Last Admin: 05/24/17 09:12 Dose: Not Given Sucralfate (Carafate Tab) 1 gm PO BID [facility] Last Admin: 05/24/17 09:08 Dose: 1 gm - Labs Labs: 05/24/17 07:30 05/24/17 07:30 - Constitutional Appears: No Acute Distress - Head Exam Head Exam: NORMAL INSPECTION - Eye Exam Eye Exam: EOMI, Normal appearance Pupil Exam: NORMAL ACCOMODATION - ENT Exam ENT Exam: Mucous Membranes Moist - Neck Exam Neck Exam: Full ROM, Normal Inspection. absent: Tenderness - Respiratory Exam Respiratory Exam: Clear to Ausculation Bilateral, NORMAL BREATHING PATTERN. absent: Accessory Muscle Use, Prolonged Expiratory Phase, Respiratory Distress - Cardiovascular Exam Cardiovascular Exam: REGULAR RHYTHM. absent: Bradycardia, Tachycardia - GI/Abdominal Exam GI & Abdominal Exam: Soft, Tenderness, Hypoactive Bowel Sounds. absent: Rebound Additional comments: LLQ pain. no rebound - Extremities Exam Extremities Exam: Full ROM, Normal Inspection. absent: Pedal Edema - Back Exam Back Exam: Full ROM - Neurological Exam Neurological Exam: Alert, Awake, Normal Gait - Psychiatric Exam Psychiatric exam: Normal Affect, Normal Mood - Skin Skin Exam: Dry, Normal Color, Warm Assessment and Plan - Assessment and Plan (Free Text) Assessment: Patient is a 62 year old male with PMH of HTN and hx of colon polyps who presents to [facility] complaining of abdominal pain for the past 2-[address] Abdomen/Pelvis IV/PO contrast: Colitis Plan: 1. Left lower abdominal pain - Likely 2/2 constipation vs. IBS vs. diverticulitis - CT abdomen showing moderate fecal retention, no bowel obstruction, no free fluid or free air - Lipase of 558, Lactate of 3.6 on VBG, No elevation of WBC - most recent colonoscopy was four years ago showing polyps - IV Dilaudid 0.5mg Q4prn for severe pain - zofran for nausea - Liquid diet, IVF NS - GI consult - repeat lipase/amylase and lactic acid CT scan: colitis ID: Zosyn 500 mg 100cc IVPB Q8 2. Hypokalemia, resolved - K of 2.7 on admit - Patient asymptomatic, EKG showing no ST segment elevation/depression - f/u CMP - Hold home diuretic - monitor 3. Constipation - History of constipation past week secondary to imodium - CT abdomen pelvis showing fecal retention - Miralax, Colace 4. Hx of HTN - VSS - Restart Metoprolol 50mg - Hold diuretic due to hypokalemia on presentation 5. GI/DVT ppx - protonix - SCDs <[email or web address] - Last Filed: 05/24/17 15:36> Objective - Vital Signs/Intake and Output Vital Signs (last 24 hours): Temp Pulse Resp BP Pulse Ox 98.6 F 65 20 127/83 99 05/24/17 12:00 05/24/17 12:00 05/24/17 12:00 05/24/17 12:00 05/24/17 06:00 Intake and Output: 05/24/17 05/24/17 06:59 18:59 Intake Total 0 1147 Output Total 0 Balance 0 1147 - Medications Medications: Current Medications Acetaminophen (Tylenol 325mg Tab) 650 mg PO Q6H PRN PRN Reason: Fever >100.4 F Last Admin: 05/23/17 23:28 Dose: 650 mg Docusate Sodium (Colace) 100 mg PO BID [facility] Last Admin: 05/24/17 09:08 Dose: 100 mg Hydromorphone HCl (Dilaudid) 0.5 mg IVP Q6H PRN PRN Reason: Pain, severe (8-10) Last Admin: 05/24/17 10:56 Dose: 0.5 mg Sodium Chloride (Sodium Chloride 0.9%) 1,000 mls @ 100 mls/hr IV .Q10H [facility] Last Admin: 05/24/17 08:55 Dose: 100 mls/hr Metronidazole (Flagyl) 500 mg in 100 mls @ 100 mls/hr IVPB Q8 [facility] PRN Reason: Protocol Last Admin: 05/24/17 15:00 Dose: 100 mls/hr Ceftriaxone Sodium (Rocephin 1 Gram Ivpb) 1 gm in 100 mls @ 200 mls/hr IVPB STAT STA PRN Reason: Protocol Stop: 05/24/17 15:43 Ceftriaxone Sodium (Rocephin 1 Gram Ivpb) 1 gm in 100 mls @ 100 mls/hr IVPB DAILY [facility] PRN Reason: Protocol Metoprolol Succinate (Toprol Xl) 50 mg PO DAILY [facility] Last Admin: 05/24/17 09:07 Dose: 50 mg Pantoprazole Sodium (Protonix Inj) 40 mg IVP DAILY [facility] Last Admin: 05/24/17 09:06 Dose: 40 mg Polyethylene Glycol (Miralax) 17 gm PO BID [facility] Last Admin: 05/24/17 09:12 Dose: Not Given Sucralfate (Carafate Tab) 1 gm PO BID [facility] Last Admin: 05/24/17 09:08 Dose: 1 gm - Labs Labs: 05/24/17 07:30 05/24/17 07:30 Attending/Attestation - Attestation I have personally seen and examined this patient.: Yes I have fully participated in the care of the patient.: Yes I have reviewed all pertinent clinical information, including history, physical exam and plan: Yes Notes (Text): 05/24/17 15:25 attending note; patient seen and examined with the resident. Patient is a 62 year old male with PMH of HTN and hx of colon polyps who presents to [facility] complaining of abdominal pain for the past 2-3 weeks. Patient has diarrhea for the past few weeks. Complaining of left lower quadrant pain on and off. Initial CT scan without contrast showed constipation. Patient had few episodes of bloody BM last night. CT with PO AND IV contrast showed colitis. Started on IV Flagyl. GI evaluation appreciated. On clear liquid diet. Monitor closely. Upon discharge the patient will follow up with PMD . 05/24/17 15:35
[2017-05-24] MEDS: metroNIDAZOLE IV 500 mg/100 ml 500 MG/100 ML BAG IVPB SCH ×2 (15:00→21:26)
[2017-05-24] MEDS ORDERED: Magnesium Citrate Oral SOL (300 ml) PO STA (15:16)
[2017-05-24] MEDS: cefTRIAXone 1 gm 1 GM/100 ML BAG IVPB STA ×2 (16:57→17:15)
[2017-05-25] MEDS: metroNIDAZOLE IV 500 mg/100 ml 500 MG/100 ML BAG IVPB SCH ×3 (05:34→21:25)
[2017-05-25] MEDS: Sodium Chloride 0.9% 1,000 ML IV SCH ×2 (05:34→11:39)
[2017-05-25 06:16] LABS: BASO # 0.02 K/mm3 (0.0-2.0); BASO % 0.2 % (0.0-3.0); EOS # 0.1 (0.0-0.7); GRAN # 8.38 (1.4-6.5); GRAN % 82.7 % (50.0-68.0); HEMOGLOBIN 14.6 g/dL (14.0-18.0); LYMPH # 1.2 (1.2-3.4); MEAN CELL VOLUME 88.4 fl (80.0-105.0); MEAN CORPUSCULAR HEMOGLOBIN 30.3 pg (25.0-35.0); MEAN CORPUSCULAR HGB CONC 34.3 g/dl (31.0-37.0); MONO # 0.4 (0.1-0.6); MONO % 4.1 % (1.0-6.0); PLATELET COUNT 162 10^3/uL (120.0-450.0); RBC 4.82 10^6/uL (3.5-6.1); WHITE BLOOD COUNT 10.1 10^3/ul (4.5-11.0)
[2017-05-25 06:27] LABS: INR 1.03 (0.93-1.08); PARTIAL THROMBOPLASTIN TIME 29.1 Seconds (23.7-30.8); PROTHROMBIN TIME 11.1 Seconds (9.9-11.8)
[2017-05-25 06:49] LABS: ALB/GLOB RATIO 1.5 (1.1-1.8); ALBUMIN 3.9 g/dL (3.0-4.8); ALT/SGPT 37 U/L (7-56); AST/SGOT 23 U/L (15-59); BLOOD UREA NITROGEN 8 mg/dL (7-21); CALCIUM 8.4 mg/dL (8.4-10.5); GFR AFRICAN-AMERICAN > 60; GFR NON-AFRICAN AMERICAN > 60
[2017-05-25] MEDS: Metoprolol Succinate 50 mg XL Tab PO SCH (09:02)
[2017-05-25] MEDS: cefTRIAXone 1 gm 1 GM/100 ML BAG IVPB SCH (09:04)
[2017-05-25] MEDS: POLYETHYLENE GLYCOL 3350 17 GM/Dose PACKET PO SCH ×2 (09:05→17:52)
[2017-05-25] MEDS ORDERED: Lidocaine 2% Inj (20ml) ONE (09:51)
[2017-05-25] MEDS ORDERED: Propofol 10 mg/ml Inj (20 ML) ONE (09:51)
[2017-05-25] MEDS ORDERED: ePHEDrine 50 mg/ml Inj ONE (10:03)
[2017-05-25] MEDS ORDERED: Sodium Chloride 0.9% 1,000 ML IV SCH (10:30)
--- NOTE | 2017-05-25 13:50 | CP.PCM.PN ---
<Olga Cruz - Last Filed: 05/25/17 13:53> Subjective - Date & Time of Evaluation Date of Evaluation: 05/25/17 Time of Evaluation: 13:46 - Subjective Subjective: Progress note for Dr. Munoz PT S&E at bedside. TASHA. Patient states he had bloody bowel movements, but his mosts recent one wasn't bloody. Patient is stable and comfortable. Patient admits to [facility] pain and constipation. CT Abdomen/Pelvis shows colitis. Patient placed patient on antibiotics for colitis. Per GI Dr. Fowler: colonoscopy results: ulcerated mucosa. colonic ulcerations and present in proximal descending colon at [address] abdomen/pelvis PO and IV contrast this AM. Patient denies F/C, N/V. Patient states he's comfortable and feels better than yesterday. Patient was told he is going to be observed for a few more days per GI recommendations and sent home on antibiotics. Objective - Vital Signs/Intake and Output Vital Signs (last 24 hours): Temp Pulse Resp BP Pulse Ox 98.2 F 67 16 106/68 99 05/25/17 10:31 05/25/17 10:31 05/25/17 10:31 05/25/17 10:31 05/25/17 10:31 - Medications Medications: Current Medications Acetaminophen (Tylenol 325mg Tab) 650 mg PO Q6H PRN PRN Reason: Fever >100.4 F Last Admin: 05/23/17 23:28 Dose: 650 mg Docusate Sodium (Colace) 100 mg PO BID [facility] Last Admin: 05/25/17 09:05 Dose: Not Given Hydromorphone HCl (Dilaudid) 0.5 mg IVP Q6H PRN PRN Reason: Pain, severe (8-10) Last Admin: 05/24/17 10:56 Dose: 0.5 mg Sodium Chloride (Sodium Chloride 0.9%) 1,000 mls @ 100 mls/hr IV .Q10H [facility] Last Admin: 05/25/17 11:39 Dose: 100 mls/hr Metronidazole (Flagyl) 500 mg in 100 mls @ 100 mls/hr IVPB Q8 [facility] PRN Reason: Protocol Last Admin: 05/25/17 05:34 Dose: 100 mls/hr Ceftriaxone Sodium (Rocephin 1 Gram Ivpb) 1 gm in 100 mls @ 100 mls/hr IVPB DAILY [facility] PRN Reason: Protocol Last Admin: 05/25/17 09:04 Dose: 100 mls/hr Sodium Chloride (Sodium Chloride 0.9%) 1,000 mls @ 100 mls/hr IV .Q10H [facility] Metoprolol Succinate (Toprol Xl) 50 mg PO DAILY [facility] Last Admin: 05/25/17 09:02 Dose: 50 mg Pantoprazole Sodium (Protonix Inj) 40 mg IVP DAILY [facility] Last Admin: 05/25/17 09:05 Dose: 40 mg Polyethylene Glycol (Miralax) 17 gm PO BID [facility] Last Admin: 05/25/17 09:05 Dose: Not Given Sucralfate (Carafate Tab) 1 gm PO BID [facility] Last Admin: 05/25/17 09:04 Dose: Not Given - Labs Labs: 05/25/17 05:20 05/25/17 05:20 PT 11.1 Seconds (9.9-11.8) 05/25/17 05:20 INR 1.03 (0.93-1.08) 05/25/17 05:20 APTT 29.1 Seconds (23.7-30.8) 05/25/17 05:20 - Constitutional Appears: Non-toxic, No Acute Distress - Head Exam Head Exam: NORMAL INSPECTION - Eye Exam Eye Exam: EOMI, Normal appearance - ENT Exam ENT Exam: Mucous Membranes Moist - Neck Exam Neck Exam: Full ROM, Normal Inspection - Respiratory Exam Respiratory Exam: Clear to Ausculation Bilateral. absent: Accessory Muscle Use , Respiratory Distress - Cardiovascular Exam Cardiovascular Exam: REGULAR RHYTHM. absent: Bradycardia, Tachycardia - GI/Abdominal Exam GI & Abdominal Exam: Soft, Tenderness, Normal Bowel Sounds - Extremities Exam Extremities Exam: Full ROM, Normal Inspection. absent: Calf Tenderness, Pedal Edema, Tenderness - Neurological Exam Neurological Exam: Alert, Awake, Normal Gait - Psychiatric Exam Psychiatric exam: Normal Affect, Normal Mood - Skin Skin Exam: Dry, Intact, Pallor, Warm Assessment and Plan - Assessment and Plan (Free Text) Assessment: Patient is a 62 year old male with PMH of HTN and hx of colon polyps who presents to [facility] complaining of abdominal pain for the past 2-[address] Abdomen/Pelvis IV/PO contrast: Colitis. Colonoscopy: ulcerations in Descending colon and hemorrhoids. Plan: Plan: 1. Left lower abdominal pain - Likely 2/2 constipation vs. IBS vs. diverticulitis - CT abdomen showing moderate fecal retention, no bowel obstruction, no free fluid or free air - Lipase of 558, Lactate of 3.6 on VBG, No elevation of WBC - most recent colonoscopy was four years ago showing polyps - IV Dilaudid 0.5mg Q4prn for severe pain - zofran for nausea - Liquid diet, IVF NS - GI consult - repeat lipase/amylase and lactic acid CT scan: colitis rocephin 1 gm 100 cc IVPB Zosyn 500 mg 100 cc IVPBQ8 Colonoscopy: internal hemorrhoids. ulcerated mucosa. colonic ulcerations and present in proximal descending colon at 50 cm 2. Hypokalemia, resolved - K of 2.7 on admit - Patient asymptomatic, EKG showing no ST segment elevation/depression - f/u CMP - Hold home diuretic - monitor 3. Constipation - History of constipation past week secondary to imodium - CT abdomen pelvis showing fecal retention - Miralax, Colace 4. Hx of HTN - VSS - Restart Metoprolol 50mg - Hold diuretic due to hypokalemia on presentation 5. GI/DVT ppx - protonix - SCDs <Belem Munoz - Last Filed: 05/25/17 14:36> Objective - Vital Signs/Intake and Output Vital Signs (last 24 hours): Temp Pulse Resp BP Pulse Ox 98.2 F 67 16 106/68 99 05/25/17 10:31 05/25/17 10:31 05/25/17 10:31 05/25/17 10:31 05/25/17 10:31 - Medications Medications: Current Medications Acetaminophen (Tylenol 325mg Tab) 650 mg PO Q6H PRN PRN Reason: Fever >100.4 F Last Admin: 05/23/17 23:28 Dose: 650 mg Docusate Sodium (Colace) 100 mg PO BID [facility] Last Admin: 05/25/17 09:05 Dose: Not Given Hydromorphone HCl (Dilaudid) 0.5 mg IVP Q6H PRN PRN Reason: Pain, severe (8-10) Last Admin: 05/24/17 10:56 Dose: 0.5 mg Sodium Chloride (Sodium Chloride 0.9%) 1,000 mls @ 100 mls/hr IV .Q10H [facility] Last Admin: 05/25/17 11:39 Dose: 100 mls/hr Metronidazole (Flagyl) 500 mg in 100 mls @ 100 mls/hr IVPB Q8 [facility] PRN Reason: Protocol Last Admin: 05/25/17 05:34 Dose: 100 mls/hr Ceftriaxone Sodium (Rocephin 1 Gram Ivpb) 1 gm in 100 mls @ 100 mls/hr IVPB DAILY [facility] PRN Reason: Protocol Last Admin: 05/25/17 09:04 Dose: 100 mls/hr Sodium Chloride (Sodium Chloride 0.9%) 1,000 mls @ 100 mls/hr IV .Q10H [facility] Metoprolol Succinate (Toprol Xl) 50 mg PO DAILY [facility] Last Admin: 05/25/17 09:02 Dose: 50 mg Pantoprazole Sodium (Protonix Inj) 40 mg IVP DAILY [facility] Last Admin: 05/25/17 09:05 Dose: 40 mg Polyethylene Glycol (Miralax) 17 gm PO BID [facility] Last Admin: 05/25/17 09:05 Dose: Not Given Sucralfate (Carafate Tab) 1 gm PO BID [facility] Last Admin: 05/25/17 09:04 Dose: Not Given - Labs Labs: 05/25/17 05:20 05/25/17 05:20 PT 11.1 Seconds (9.9-11.8) 05/25/17 05:20 INR 1.03 (0.93-1.08) 05/25/17 05:20 APTT 29.1 Seconds (23.7-30.8) 05/25/17 05:20 Attending/Attestation - Attestation I have personally seen and examined this patient.: Yes I have fully participated in the care of the patient.: Yes I have reviewed all pertinent clinical information, including history, physical exam and plan: Yes Notes (Text): 05/25/17 14:34 attending note; patient seen and examined with the resident. Patient is a 62 year old male with PMH of HTN and hx of colon polyps who presents to [facility] complaining of abdominal pain for the past 2-3 weeks. Patient has diarrhea for the past few weeks. Complaining of left lower quadrant pain on and off. Initial CT scan without contrast showed constipation. CT with PO AND IV contrast showed colitis. Started on IV Rocephin and Flagyl. GI evaluation appreciated. status post colonoscopy. colonoscopy showed mucosal ulceration. Biopsy taken. On clear liquid diet. needs close follow-up with GI Dr. Fisher as outpatient. Upon discharge the patient will follow up with PMD .
[2017-05-26] MEDS: metroNIDAZOLE IV 500 mg/100 ml 500 MG/100 ML BAG IVPB SCH ×2 (05:05→14:12)
[2017-05-26] MEDS: Sodium Chloride 0.9% 1,000 ML IV SCH (05:17)
[2017-05-26 07:41] LABS: BASO # 0.02 K/mm3 (0.0-2.0); BASO % 0.3 % (0.0-3.0); EOS # 0.1 (0.0-0.7); EOS % 0.9 % (1.5-5.0); GRAN # 6.16 (1.4-6.5); GRAN % 82.7 % (50.0-68.0); HEMOGLOBIN 12.7 g/dL (14.0-18.0); LYMPH # 0.8 (1.2-3.4); LYMPH % 10.3 % (22.0-35.0); MEAN CELL VOLUME 87.1 fl (80.0-105.0); MEAN CORPUSCULAR HEMOGLOBIN 30.5 pg (25.0-35.0); MEAN PLATELET VOLUME 10.5 fl (7.0-11.0); MONO # 0.4 (0.1-0.6); MONO % 5.8 % (1.0-6.0); PLATELET COUNT 141 10^3/uL (120.0-450.0); RBC 4.17 10^6/uL (3.5-6.1); RED CELL DISTRIBUTION WIDTH 12.7 % (11.5-14.5); WHITE BLOOD COUNT 7.5 10^3/ul (4.5-11.0)
[2017-05-26 08:02] LABS: ALB/GLOB RATIO 1.4 (1.1-1.8); ALBUMIN 3.2 g/dL (3.0-4.8); ALT/SGPT 32 U/L (7-56); AST/SGOT 19 U/L (15-59); BLOOD UREA NITROGEN 8 mg/dL (7-21); CALCIUM 7.8 mg/dL (8.4-10.5); GFR AFRICAN-AMERICAN > 60; GFR NON-AFRICAN AMERICAN > 60
[2017-05-26 08:12] VITALS: RESP 20
--- NOTE | 2017-05-26 08:41 | US ---
PROCEDURE: Duplex ultrasound of the mesenteric arteries. HISTORY: Abdominal pain. Evaluate for mesenteric ischemia. PHYSICIAN(S): Omi Stahl MD. TECHNIQUE: Duplex sonography with color-flow Doppler was used to evaluate limited segments of the abdominal aorta and proximal segments of the mesenteric arteries. FINDINGS: The exam is very limited by body habitus and bowel gas. The proximal celiac axis and SMA are only visualized in segments. No obvious stenosis is appreciated but the exam is suboptimal. If clinical suspicion for mesenteric ischemia is high, additional imaging with CTA, MRA, or conventional arteriography can be considered. IMPRESSION: 1. Patent proximal celiac axis and SMA. 2. Very limited study. The exam does not rule out significant stenosis. If clinical suspicion is high, additional imaging with CTA, MRA, or conventional arteriography can be considered.
[2017-05-26] MEDS ORDERED: Potassium Chloride 40 mEq/30 ml LIQ UD PO ONE (08:43)
--- NOTE | 2017-05-26 09:05 | CP.PCM.PN ---
<Mariaa Cardenas - Last Filed: 05/26/17 14:25> Subjective - Date & Time of Evaluation Date of Evaluation: 05/26/17 Time of Evaluation: 08:40 - Subjective Subjective: S&E at bedside, had colonoscopy yesterday, found mucosal ulceration in colon, biopsy and stool studies obtained. No bleeding but did have multiple loose BM yesterday. Abdominal pain improved, 1/10, just feel "sore". Hungry this am. No bleeding reported. Went for abdominal doppler this am. Results pending. Objective - Vital Signs/Intake and Output Vital Signs (last 24 hours): Temp Pulse Resp BP Pulse Ox 98.8 F 63 20 121/65 95 05/26/17 08:12 05/26/17 08:12 05/26/17 08:12 05/26/17 08:12 05/26/17 08:12 Intake and Output: 05/26/17 05/26/17 06:59 18:59 Intake Total 3480 Output Total 400 Balance 3080 - Medications Medications: Current Medications Acetaminophen (Tylenol 325mg Tab) 650 mg PO Q6H PRN PRN Reason: Fever >100.4 F Last Admin: 05/23/17 23:28 Dose: 650 mg Docusate Sodium (Colace) 100 mg PO BID [facility] Last Admin: 05/25/17 17:43 Dose: 100 mg Hydromorphone HCl (Dilaudid) 0.5 mg IVP Q6H PRN PRN Reason: Pain, severe (8-10) Last Admin: 05/24/17 10:56 Dose: 0.5 mg Sodium Chloride (Sodium Chloride 0.9%) 1,000 mls @ 100 mls/hr IV .Q10H [facility] Last Admin: 05/26/17 05:17 Dose: 100 mls/hr Metronidazole (Flagyl) 500 mg in 100 mls @ 100 mls/hr IVPB Q8 [facility] PRN Reason: Protocol Last Admin: 05/26/17 05:05 Dose: 100 mls/hr Ceftriaxone Sodium (Rocephin 1 Gram Ivpb) 1 gm in 100 mls @ 100 mls/hr IVPB DAILY [facility] PRN Reason: Protocol Last Admin: 05/25/17 09:04 Dose: 100 mls/hr Sodium Chloride (Sodium Chloride 0.9%) 1,000 mls @ 100 mls/hr IV .Q10H [facility] Metoprolol Succinate (Toprol Xl) 50 mg PO DAILY [facility] Last Admin: 05/25/17 09:02 Dose: 50 mg Pantoprazole Sodium (Protonix Inj) 40 mg IVP DAILY [facility] Last Admin: 05/25/17 09:05 Dose: 40 mg Polyethylene Glycol (Miralax) 17 gm PO BID [facility] Last Admin: 05/25/17 17:52 Dose: 17 gm Sucralfate (Carafate Tab) 1 gm PO BID [facility] Last Admin: 05/25/17 17:43 Dose: 1 gm - Labs Labs: 05/26/17 07:00 05/26/17 07:00 PT 11.1 Seconds (9.9-11.8) 05/25/17 05:20 INR 1.03 (0.93-1.08) 05/25/17 05:20 APTT 29.1 Seconds (23.7-30.8) 05/25/17 05:20 - Constitutional Appears: No Acute Distress - Head Exam Head Exam: NORMOCEPHALIC - Eye Exam Eye Exam: Normal appearance. absent: Scleral icterus - ENT Exam ENT Exam: Mucous Membranes Moist - Neck Exam Neck Exam: Normal Inspection - Respiratory Exam Respiratory Exam: Clear to Ausculation Bilateral, NORMAL BREATHING PATTERN. absent: Respiratory Distress - Cardiovascular Exam Cardiovascular Exam: +S1, +S2 - GI/Abdominal Exam GI & Abdominal Exam: Soft, Normal Bowel Sounds. absent: Guarding, Tenderness, Rebound - Extremities Exam Extremities Exam: Normal Capillary Refill. absent: Calf Tenderness, Pedal Edema - Neurological Exam Neurological Exam: Alert, Awake, Oriented x3 - Skin Skin Exam: Dry, Warm Assessment and Plan - Assessment and Plan (Free Text) Assessment: Assessment: Colitis ischemia VS inflammatory, s/p colon, mucosal ulceration Resolving Left lower quadrant abdominal pain s/p Consitpation History of colon polyps Hypertension Hypokalemia, resolved Weight Loss Plan: change diet to heart healthy low fiber soft diet hold Miralax on colace replace potassium as needed monitor electrolytes monitor H/H IV antibiotics: flagyl and rocephin FU stool studies, colon BX , and IBD serology Seen and discussed w/ Dr. Fowler. ADDENDUM: 2:25pm abdominal doppler reviewed report. no acute finding but limited study. FU stool studies and biopsy,discussed w/patient regarding outpatient hematology FU. TO be discharged home on oral antibiotics for 1 week as per medical team. Patient to FU outpatient office. Discussed with patient. <Evonne Fowler V - Last Filed: 05/26/17 23:31> Objective - Vital Signs/Intake and Output Vital Signs (last 24 hours): Temp Pulse Resp BP Pulse Ox 98.6 F 53 L 20 127/74 97 05/26/17 17:01 05/26/17 17:01 05/26/17 17:01 05/26/17 17:01 05/26/17 17:01 Intake and Output: 05/26/17 05/27/17 18:59 06:59 Intake Total 780 Balance 780 - Labs Labs: 05/26/17 07:00 05/26/17 07:00 PT 11.1 Seconds (9.9-11.8) 05/25/17 05:20 INR 1.03 (0.93-1.08) 05/25/17 05:20 APTT 29.1 Seconds (23.7-30.8) 05/25/17 05:20 Attending/Attestation - Attestation I have personally seen and examined this patient.: Yes I have fully participated in the care of the patient.: Yes I have reviewed all pertinent clinical information, including history, physical exam and plan: Yes Notes (Text): The patient was seen and examined at bedside. Medical records, lab studies, imagings were reviewed. Last 24 hours events reviewed. Agreed with the above treatment plan as outlined in Mariaa Cardenas NP's notes the with the addition of the following Patient is tolerating diet . abdominal pain has improved. Abdominal Doppler reviewed limited study Complete antibiotic course Low residue diet with stool softeners Follow-up IBD serology and biopsy report Clinically suggestive of ischemic colitis. Patient would benefit from elective colonoscopy, hematology evaluation and the would consider MRA after reviewing the above workup Will discuss with Dr. brantley. I did discuss with the Dr. Vela today in detail 05/26/17 23:27
[2017-05-26] MEDS: Metoprolol Succinate 50 mg XL Tab PO SCH (09:58)
[2017-05-26] MEDS: cefTRIAXone 1 gm 1 GM/100 ML BAG IVPB SCH (10:00)
--- NOTE | 2017-05-26 15:09 | CP.PCM.DIS ---
Addendum entered and electronically signed by Olga Cruz DO 05/26/17 15:29: PT S&E at bedside. Patient states he's feeling much better. Tolerated diet and feels ready to go home. Physical Exam - Constitutional Appears: Non-toxic, No Acute Distress - Head Exam Head Exam: NORMAL INSPECTION - Eye Exam Eye Exam: EOMI, Normal appearance - ENT Exam ENT Exam: Mucous Membranes Moist - Neck Exam Neck Exam: Full ROM, Normal Inspection - Respiratory Exam Respiratory Exam: Clear to Ausculation Bilateral. absent: Accessory Muscle Use , Respiratory Distress - Cardiovascular Exam Cardiovascular Exam: REGULAR RHYTHM. absent: Bradycardia, Tachycardia - GI/Abdominal Exam GI & Abdominal Exam: Soft, Tenderness, Normal Bowel Sounds - Extremities Exam Extremities Exam: Full ROM, Normal Inspection. absent: Calf Tenderness, Pedal Edema, Tenderness - Neurological Exam Neurological Exam: Alert, Awake, Normal Gait - Psychiatric Exam Psychiatric exam: Normal Affect, Normal Mood - Skin Skin Exam: Dry, Intact, Pallor, Warm Original Note: <Olga Cruz - Last Filed: 05/26/17 15:24> Provider - Provider Date of Admission: 05/23/17 02:35 Attending physician: Nik Vela MD Primary care physician: Jamey Hou MD Time Spent in preparation of Discharge (in minutes): 35 Hospital Course - Lab Results Lab Results: Micro Results 05/25/17 12:50 Stool C. difficile Antigen & Toxin A,B (M - Final Most Recent Lab Values WBC 7.5 10^3/ul (4.5-11.0) D 05/26/17 07:00 RBC 4.17 10^6/uL (3.5-6.1) 05/26/17 07:00 Hgb 12.7 g/dL (14.0-18.0) L 05/26/17 07:00 Hct 36.3 % (42.0-52.0) L 05/26/17 07:00 MCV 87.1 fl (80.0-105.0) 05/26/17 07:00 MCH 30.5 pg (25.0-35.0) 05/26/17 07:00 MCHC 35.0 g/dl (31.0-37.0) 05/26/17 07:00 RDW 12.7 % (11.5-14.5) 05/26/17 07:00 Plt Count 141 10^3/uL (120.0-450.0) 05/26/17 07:00 MPV 10.5 fl (7.0-11.0) 05/26/17 07:00 Gran % 82.7 % (50.0-68.0) H 05/26/17 07:00 Lymph % (Auto) 10.3 % (22.0-35.0) L 05/26/17 07:00 Page % (Auto) 5.8 % (1.0-6.0) 05/26/17 07:00 Eos % (Auto) 0.9 % (1.5-5.0) L 05/26/17 07:00 Baso % (Auto) 0.3 % (0.0-3.0) 05/26/17 07:00 Gran # 6.16 (1.4-6.5) 05/26/17 07:00 Lymph # 0.8 (1.2-3.4) L 05/26/17 07:00 Page # 0.4 (0.1-0.6) 05/26/17 07:00 Eos # 0.1 (0.0-0.7) 05/26/17 07:00 Baso # 0.02 K/mm3 (0.0-2.0) 05/26/17 07:00 PT 11.1 Seconds (9.9-11.8) 05/25/17 05:20 INR 1.03 (0.93-1.08) 05/25/17 05:20 APTT 29.1 Seconds (23.7-30.8) 05/25/17 05:20 pO2 27 mm/Hg (30-55) L 05/23/17 16:46 VBG pH 7.42 (7.32-7.43) 05/23/17 16:46 VBG pCO2 41.0 (40-60) 05/23/17 16:46 VBG HCO3 26.6 mmol/l (21-28) 05/23/17 16:46 VBG Total CO2 27.9 mmol.L (22-28) 05/23/17 16:46 VBG O2 Sat (Calc) 62.8 % (40-65) 05/23/17 16:46 VBG Base Excess 1.9 mmol/L (0.0-2.0) 05/23/17 16:46 VBG Potassium 3.8 mmol/L (3.6-5.2) 05/23/17 16:46 Sodium 141.0 mmol/L (132-148) 05/23/17 16:46 Chloride 107.0 mmol/L (98-107) 05/23/17 16:46 Glucose 104 mg/dl (75-110) 05/23/17 16:46 Lactate 1.8 mmol/L (0.7-2.1) 05/23/17 16:46 FiO2 21.0 % 05/23/17 16:46 Sodium 139 mmol/L (132-148) 05/26/17 07:00 Potassium 3.4 mmol/L (3.6-5.0) L 05/26/17 07:00 Chloride 106 mmol/L (95-110) 05/26/17 07:00 Carbon Dioxide 23 mmol/L (21-33) 05/26/17 07:00 Anion Gap 13 (10-20) 05/26/17 07:00 BUN 8 mg/dL (7-21) 05/26/17 07:00 Creatinine 0.8 mg/dL (0.5-1.4) 05/26/17 07:00 Est GFR ( Amer) > 60 05/26/17 07:00 Est GFR (Non-Af Amer) > 60 05/26/17 07:00 Random Glucose 74 mg/dL (70-110) 05/26/17 07:00 Lactic Acid 2.8 mmol/L (0.7-2.1) H 05/23/17 08:00 Calcium 7.8 mg/dL (8.4-10.5) L 05/26/17 07:00 Magnesium 1.8 mg/dL (1.7-2.2) 05/23/17 11:30 Total Bilirubin 0.7 mg/dL (0.2-1.3) 05/26/17 07:00 AST 19 U/L (15-59) 05/26/17 07:00 ALT 32 U/L (7-56) 05/26/17 07:00 Alkaline Phosphatase 39 U/L (38-133) 05/26/17 07:00 Total Protein 5.4 g/dL (5.8-8.3) L 05/26/17 07:00 Albumin 3.2 g/dL (3.0-4.8) 05/26/17 07:00 Globulin 2.3 gm/dL 05/26/17 07:00 Albumin/Globulin Ratio 1.4 (1.1-1.8) 05/26/17 07:00 Lipase 558 U/L (23-300) H 05/23/17 00:03 Venous Blood Potassium 3.8 mmol/L (3.6-5.2) 05/23/17 16:46 Urine Color Yellow (YELLOW) 05/23/17 01:50 Urine Appearance Clear (CLEAR) 05/23/17 01:50 Urine pH 6.5 (4.7-8.0) 05/23/17 01:50 Ur Specific [place] 1.010 (1.005-1.035) 05/23/17 01:50 Urine Protein Negative mg/dL (<30 mg/dL) 05/23/17 01:50 Urine Glucose (UA) Negative mg/dL (NEGATIVE) 05/23/17 01:50 Urine Ketones 40 mg/dL (NEGATIVE) H 05/23/17 01:50 Urine Blood Negative (NEGATIVE) 05/23/17 01:50 Urine Nitrate Negative (NEGATIVE) 05/23/17 01:50 Urine Bilirubin Negative (NEGATIVE) 05/23/17 01:50 Urine Urobilinogen 0.2 E.U./dL (<1 E.U./dL) 05/23/17 01:50 Ur Leukocyte Esterase Negative [place]/uL (NEGATIVE) 05/23/17 01:50 - Hospital Course Hospital Course: Discharge Plan for Dr. Vela 62M 2-3 weeks of abdominal pain with PMH sig for HTN and colon polyps. The patient reports for the past week he has experienced diarrhea associated with his abdominal pain. Patient describes abdominal pain as cramping and sharp located at the left lower quadrant. The patient went to his PMD Dr. Hou with presenting complaints and given imodium. Patient was given Colace, Miralax, Dulcolax. Patient reports multple bowel movements. During patient's stay at the hospital, Dr. Fowler saw patient, had an abdominal US done, concern for ischemic colitis. CT abdomen PO and IV contrast showed colitis. Colonoscopy showed multiple ulcerations in descending colon. Biopsy follow up outpatient. Patient is Discharged home on antibiotics, to follow up with GI doctor and Dr. Hou (PMD) in one week. Olga Cruz DO PGY1 - Date & Time of H&P Date of H&P: 05/26/17 Time of H&P: 15:27 Discharge Exam - Head Exam Head Exam: NORMOCEPHALIC Discharge Plan - Discharge Medications Prescriptions: Ciprofloxacin [Cipro] 500 mg PO DAILY #7 tab metroNIDAZOLE [Flagyl] 500 mg PO DAILY #7 tab Potassium Chloride 20 meq PO DAILY #3 tab.er.prt - Follow Up Plan Condition: STABLE Disposition: HOME/ ROUTINE Patient education suggested?: Yes Instructions: Low Fiber Diet (GEN), Ulcerative Colitis (GEN), Acute Abdominal Pain (GEN), Hypertension (GEN) Additional Instructions: 1. Follow up with your PMD, Dr. Hou within 1 week. 2. Follow up with your security expert, Dr. Fowler on your scheduled appointment 06/01/2017. 3. Continue to take your medications as directed. 4. Return to the emergency room should you have worsening of your symptoms. 5. continue with flagyl and start cipro as directed. Referrals: Jamey Hou MD [Primary Care Provider] - <Nik Vela - Last Filed: 05/26/17 16:47> Provider - Provider Date of Admission: 05/23/17 02:35 Attending physician: Nik Vela MD Primary care physician: Jamey Hou MD Hospital Course - Lab Results Lab Results: Micro Results 05/25/17 12:50 Stool C. difficile Antigen & Toxin A,B (M - Final Most Recent Lab Values WBC 7.5 10^3/ul (4.5-11.0) D 05/26/17 07:00 RBC 4.17 10^6/uL (3.5-6.1) 05/26/17 07:00 Hgb 12.7 g/dL (14.0-18.0) L 05/26/17 07:00 Hct 36.3 % (42.0-52.0) L 05/26/17 07:00 MCV 87.1 fl (80.0-105.0) 05/26/17 07:00 MCH 30.5 pg (25.0-35.0) 05/26/17 07:00 MCHC 35.0 g/dl (31.0-37.0) 05/26/17 07:00 RDW 12.7 % (11.5-14.5) 05/26/17 07:00 Plt Count 141 10^3/uL (120.0-450.0) 05/26/17 07:00 MPV 10.5 fl (7.0-11.0) 05/26/17 07:00 Gran % 82.7 % (50.0-68.0) H 05/26/17 07:00 Lymph % (Auto) 10.3 % (22.0-35.0) L 05/26/17 07:00 Page % (Auto) 5.8 % (1.0-6.0) 05/26/17 07:00 Eos % (Auto) 0.9 % (1.5-5.0) L 05/26/17 07:00 Baso % (Auto) 0.3 % (0.0-3.0) 05/26/17 07:00 Gran # 6.16 (1.4-6.5) 05/26/17 07:00 Lymph # 0.8 (1.2-3.4) L 05/26/17 07:00 Page # 0.4 (0.1-0.6) 05/26/17 07:00 Eos # 0.1 (0.0-0.7) 05/26/17 07:00 Baso # 0.02 K/mm3 (0.0-2.0) 05/26/17 07:00 PT 11.1 Seconds (9.9-11.8) 05/25/17 05:20 INR 1.03 (0.93-1.08) 05/25/17 05:20 APTT 29.1 Seconds (23.7-30.8) 05/25/17 05:20 pO2 27 mm/Hg (30-55) L 05/23/17 16:46 VBG pH 7.42 (7.32-7.43) 05/23/17 16:46 VBG pCO2 41.0 (40-60) 05/23/17 16:46 VBG HCO3 26.6 mmol/l (21-28) 05/23/17 16:46 VBG Total CO2 27.9 mmol.L (22-28) 05/23/17 16:46 VBG O2 Sat (Calc) 62.8 % (40-65) 05/23/17 16:46 VBG Base Excess 1.9 mmol/L (0.0-2.0) 05/23/17 16:46 VBG Potassium 3.8 mmol/L (3.6-5.2) 05/23/17 16:46 Sodium 141.0 mmol/L (132-148) 05/23/17 16:46 Chloride 107.0 mmol/L (98-107) 05/23/17 16:46 Glucose 104 mg/dl (75-110) 05/23/17 16:46 Lactate 1.8 mmol/L (0.7-2.1) 05/23/17 16:46 FiO2 21.0 % 05/23/17 16:46 Sodium 139 mmol/L (132-148) 05/26/17 07:00 Potassium 3.4 mmol/L (3.6-5.0) L 05/26/17 07:00 Chloride 106 mmol/L (95-110) 05/26/17 07:00 Carbon Dioxide 23 mmol/L (21-33) 05/26/17 07:00 Anion Gap 13 (10-20) 05/26/17 07:00 BUN 8 mg/dL (7-21) 05/26/17 07:00 Creatinine 0.8 mg/dL (0.5-1.4) 05/26/17 07:00 Est GFR ( Amer) > 60 05/26/17 07:00 Est GFR (Non-Af Amer) > 60 05/26/17 07:00 Random Glucose 74 mg/dL (70-110) 05/26/17 07:00 Lactic Acid 2.8 mmol/L (0.7-2.1) H 05/23/17 08:00 Calcium 7.8 mg/dL (8.4-10.5) L 05/26/17 07:00 Magnesium 1.8 mg/dL (1.7-2.2) 05/23/17 11:30 Total Bilirubin 0.7 mg/dL (0.2-1.3) 05/26/17 07:00 AST 19 U/L (15-59) 05/26/17 07:00 ALT 32 U/L (7-56) 05/26/17 07:00 Alkaline Phosphatase 39 U/L (38-133) 05/26/17 07:00 Total Protein 5.4 g/dL (5.8-8.3) L 05/26/17 07:00 Albumin 3.2 g/dL (3.0-4.8) 05/26/17 07:00 Globulin 2.3 gm/dL 05/26/17 07:00 Albumin/Globulin Ratio 1.4 (1.1-1.8) 05/26/17 07:00 Lipase 558 U/L (23-300) H 05/23/17 00:03 Venous Blood Potassium 3.8 mmol/L (3.6-5.2) 05/23/17 16:46 Urine Color Yellow (YELLOW) 05/23/17 01:50 Urine Appearance Clear (CLEAR) 05/23/17 01:50 Urine pH 6.5 (4.7-8.0) 05/23/17 01:50 Ur Specific [place] 1.010 (1.005-1.035) 05/23/17 01:50 Urine Protein Negative mg/dL (<30 mg/dL) 05/23/17 01:50 Urine Glucose (UA) Negative mg/dL (NEGATIVE) 05/23/17 01:50 Urine Ketones 40 mg/dL (NEGATIVE) H 05/23/17 01:50 Urine Blood Negative (NEGATIVE) 05/23/17 01:50 Urine Nitrate Negative (NEGATIVE) 05/23/17 01:50 Urine Bilirubin Negative (NEGATIVE) 05/23/17 01:50 Urine Urobilinogen 0.2 E.U./dL (<1 E.U./dL) 05/23/17 01:50 Ur Leukocyte Esterase Negative [place]/uL (NEGATIVE) 05/23/17 01:50 Attending/Attestation - Attestation I have personally seen and examined this patient.: Yes I have fully participated in the care of the patient.: Yes I have reviewed all pertinent clinical information, including history, physical exam and plan: Yes Notes (Text): 05/26/17 16:43 62 year old male with past medical history of hypertension and colon polyps who presented with complaint of lower abdominal pain and diarrhea. CT abd/pelvis showed colitis. He was started on iv antibiotics. He was seen by GI and underwent colonoscopy showing multiple ulcerations; biopsy was taken. Abdominal doppler was limited by negative. Today he reports his symptoms and diarrhea have improved. He is tolerating diet without complaints. He will be discharged home to follow up with his pmd. Follow up with GI, Dr. Fowler to follow up biopsy results. Follow up with hematology as per pmd/GI. Nik Vela MD Hospitalist.
[2017-05-26 17:02] VITALS: BP 127/74; PULSE 53; TEMP 98.6; O2SAT 97
--- NOTE | 2017-05-26 23:32 | CP.PCM.PN ---
Subjective - Date & Time of Evaluation Date of Evaluation: 05/25/17 Time of Evaluation: 09:30 Objective - Vital Signs/Intake and Output Vital Signs (last 24 hours): Temp Pulse Resp BP Pulse Ox 98.2 F 61 18 107/69 95 05/25/17 16:04 05/25/17 16:04 05/25/17 16:04 05/25/17 16:04 05/25/17 16:04 Intake and Output: 05/25/17 05/26/17 18:59 06:59 Intake Total 720 Output Total 400 Balance 320 - Medications Medications: Current Medications Acetaminophen (Tylenol 325mg Tab) 650 mg PO Q6H PRN PRN Reason: Fever >100.4 F Last Admin: 05/23/17 23:28 Dose: 650 mg Docusate Sodium (Colace) 100 mg PO BID [facility] Last Admin: 05/25/17 17:43 Dose: 100 mg Hydromorphone HCl (Dilaudid) 0.5 mg IVP Q6H PRN PRN Reason: Pain, severe (8-10) Last Admin: 05/24/17 10:56 Dose: 0.5 mg Sodium Chloride (Sodium Chloride 0.9%) 1,000 mls @ 100 mls/hr IV .Q10H [facility] Last Admin: 05/25/17 11:39 Dose: 100 mls/hr Metronidazole (Flagyl) 500 mg in 100 mls @ 100 mls/hr IVPB Q8 [facility] PRN Reason: Protocol Last Admin: 05/25/17 21:25 Dose: 100 mls/hr Ceftriaxone Sodium (Rocephin 1 Gram Ivpb) 1 gm in 100 mls @ 100 mls/hr IVPB DAILY [facility] PRN Reason: Protocol Last Admin: 05/25/17 09:04 Dose: 100 mls/hr Sodium Chloride (Sodium Chloride 0.9%) 1,000 mls @ 100 mls/hr IV .Q10H [facility] Metoprolol Succinate (Toprol Xl) 50 mg PO DAILY [facility] Last Admin: 05/25/17 09:02 Dose: 50 mg Pantoprazole Sodium (Protonix Inj) 40 mg IVP DAILY [facility] Last Admin: 05/25/17 09:05 Dose: 40 mg Polyethylene Glycol (Miralax) 17 gm PO BID [facility] Last Admin: 05/25/17 17:52 Dose: 17 gm Sucralfate (Carafate Tab) 1 gm PO BID [facility] Last Admin: 05/25/17 17:43 Dose: 1 gm - Labs Labs: 05/25/17 05:20 05/25/17 05:20 PT 11.1 Seconds (9.9-11.8) 05/25/17 05:20 INR 1.03 (0.93-1.08) 05/25/17 05:20 APTT 29.1 Seconds (23.7-30.8) 05/25/17 05:20 Assessment and Plan - Assessment and Plan (Free Text) Assessment: This is a delayed dictation. Patient had a flexible sigmoidoscopy done today and the scope could not be advanced beyond 60 cm due to extensive ulcerations and narrowing of the colon due to edema and erythematous mucosa. Inflammatory process started 50 cm from the anal verge and extending up to 60 cm the scope could not be passed beyond that due to the extensive inflammatory changes at the contact bleeding The sigmoid colon and rectum mucosa was normal O small hemorrhoids noticed. Because for the segmental colitis is unclear but ischemic colitis should be considered etiology in view of this watershed area of the colon affected by this colitis. Other differential diagnoses include infectious and inflammatory Recommendations 1. Would recommend the patient to be on liquid diet and continue the IV antibiotics for [id number] hours 2. Doppler to evaluate the SMA and AMINA 3. Hematological evaluation to rule out the hypercoagulable state 4. Follow up with the pathology report 5. Recommend elective colonoscopy in 4-6 weeks' time Thank you very much allowing us to participate in the care of the patient
== END 2017-05-26 20:30 | disposition home or self-care (01) | DRG 394 ==
LOC: ED 23:36 → ERH 05-23 02:35 → 2RSO 05-23 06:00 → 5RNO 05-24 23:50
PROVIDERS: ADMIT Internal Medicine; ATTEND Internal Medicine
PROC: 0DBN8ZX Excision of Sigmoid Colon, Via Natural or Artificial Opening Endoscopic, Diagnostic (ICD-10-PCS; principal; 2017-05-25 09:45)
DX: K63.3 Ulcer of intestine (principal); K55.9 Vascular disorder of intestine, unspecified; I10 Essential (primary) hypertension; K64.8 Other hemorrhoids; K52.9 Noninfective gastroenteritis and colitis, unspecified; E87.6 Hypokalemia; R63.4 Abnormal weight loss; Z86.010 Personal history of colon polyps